=== PATIENT | male | born 1930 | race Two or more races ===

== ENCOUNTER → 2017-09-17 | Outpatient (CLI) | payer OTHER ==
[~2017-09-17] MED LIST: ATACAND16 MG PO; CEFADROXIL500 MG PO; RAYOS5 MG PO; ZYTIGA250 MG PO; [UNRECOGNIZED DRUG - OTHER]
== END | disposition home or self-care (01) ==
LOC: WOUND MED 07:59
DX: L89.623 Pressure ulcer of left heel, stage 3 (principal)
CPT/HCPCS: 11042; A4554; A4930; A6216; G0463

== ENCOUNTER 2017-09-21 07:31 | Outpatient (CLI) | payer OTHER ==
[~2017-09-21 07:31] MED LIST changes: -RAYOS5 MG PO; -ZYTIGA250 MG PO
== END 2017-09-21 07:36 | disposition home or self-care (01) ==
LOC: NUCLEAR 07:31
DX: C61 Malignant neoplasm of prostate (principal); C79.51 Secondary malignant neoplasm of bone; I48.2 Chronic atrial fibrillation; Z95.0 Presence of cardiac pacemaker; Z95.810 Presence of automatic (implantable) cardiac defibrillator
CPT/HCPCS: 78306; 78320; A9503

== ENCOUNTER → 2017-09-24 | Outpatient (CLI) | payer OTHER ==
[~2017-09-24] MED LIST changes: +RAYOS5 MG PO; +ZYTIGA250 MG PO
== END | disposition home or self-care (01) ==
LOC: EDSTATUS 10:13 → WOUND MED 14:10
DX: L89.623 Pressure ulcer of left heel, stage 3 (principal)
CPT/HCPCS: 11042; A4554; A4930; A6216; A6266

== ENCOUNTER 2017-09-30 08:32 | Outpatient (CLI) | payer OTHER ==
[~2017-09-30 08:32] MED LIST changes: -RAYOS5 MG PO; -ZYTIGA250 MG PO
== END 2017-09-30 08:46 | disposition home or self-care (01) ==
LOC: RAD 501 08:32
DX: C61 Malignant neoplasm of prostate (principal); C79.51 Secondary malignant neoplasm of bone; I48.2 Chronic atrial fibrillation; Z95.0 Presence of cardiac pacemaker; Z95.810 Presence of automatic (implantable) cardiac defibrillator

== ENCOUNTER 2017-10-01 11:05 | Outpatient (CLI) | payer OTHER | END 2017-10-17 23:59 | disposition home or self-care (01) | LOC: WOUND MED | DX: L89.623 Pressure ulcer of left heel, stage 3 (principal) | CPT/HCPCS: 11042; A4554; A4930; A6216; A6266 ==

== ENCOUNTER → 2017-10-08 | Outpatient (CLI) | payer OTHER ==
[~2017-10-08] MED LIST changes: +RAYOS5 MG PO; +ZYTIGA250 MG PO
== END | disposition home or self-care (01) ==
LOC: WOUND MED 07:56
DX: L89.623 Pressure ulcer of left heel, stage 3 (principal)
CPT/HCPCS: 11042; A4554; A4930; A6216; A6266

== ENCOUNTER 2017-10-15 10:23 | Inpatient (IN) | payer OTHER ==
[~2017-10-15] VITALS: Ht 165.1 cm; Wt 70.8 kg
[~2017-10-15 10:23] MED LIST changes: -RAYOS5 MG PO; -ZYTIGA250 MG PO
[2017-11-07] MEDS ORDERED: ZYTIGA250 MG PO (14:45)
[2017-11-07] MEDS ORDERED: RAYOS5 MG PO (14:46)
== END 2017-11-20 19:02 | disposition home health service (06) | DRG 264 ==
LOC: ER 10:23 → SURH 16:14
PROVIDERS: Specialist
PROC: 8E0ZXY6 Isolation (ICD-10-PCS; 2017-10-15)
PROC: 5A09557 Assistance with Respiratory Ventilation, Greater than 96 Consecutive Hours, Continuous Positive Airway Pressure (ICD-10-PCS; 2017-10-15)
PROC: 0JBR0ZZ Excision of Left Foot Subcutaneous Tissue and Fascia, Open Approach (ICD-10-PCS; principal; 2017-10-23 12:15)
PROC: B44HZZZ Ultrasonography of Bilateral Lower Extremity Arteries (ICD-10-PCS; 2017-10-28)
PROC: BT43ZZZ Ultrasonography of Bilateral Kidneys (ICD-10-PCS; 2017-11-02)
PROC: 3E0F7GC Introduction of Other Therapeutic Substance into Respiratory Tract, Via Natural or Artificial Opening (ICD-10-PCS; 2017-11-03)
PROC: 30233N1 Transfusion of Nonautologous Red Blood Cells into Peripheral Vein, Percutaneous Approach (ICD-10-PCS; 2017-11-09)
PROC: 0JBR0ZZ Excision of Left Foot Subcutaneous Tissue and Fascia, Open Approach (ICD-10-PCS; 2017-11-14)
DX: I87.2 Venous insufficiency (chronic) (peripheral) (principal); L97.428 Non-pressure chronic ulcer of left heel and midfoot with other specified severity; C79.51 Secondary malignant neoplasm of bone; N17.8 Other acute kidney failure; D68.8 Other specified coagulation defects; N18.4 Chronic kidney disease, stage 4 (severe); J90 Pleural effusion, not elsewhere classified; I48.2 Chronic atrial fibrillation; I25.5 Ischemic cardiomyopathy; G47.33 Obstructive sleep apnea (adult) (pediatric); K57.30 Diverticulosis of large intestine without perforation or abscess without bleeding; C61 Malignant neoplasm of prostate; Z95.1 Presence of aortocoronary bypass graft; Z95.2 Presence of prosthetic heart valve; B95.62 Methicillin resistant Staphylococcus aureus infection as the cause of diseases classified elsewhere; B96.29 Other Escherichia coli [E. coli] as the cause of diseases classified elsewhere; Z16.12 Extended spectrum beta lactamase (ESBL) resistance; Z79.01 Long term (current) use of anticoagulants; Z95.810 Presence of automatic (implantable) cardiac defibrillator; D63.0 Anemia in neoplastic disease; I13.10 Hypertensive heart and chronic kidney disease without heart failure, with stage 1 through stage 4 chronic kidney disease, or unspecified chronic kidney disease; D63.1 Anemia in chronic kidney disease; D53.0 Protein deficiency anemia; D53.1 Other megaloblastic anemias, not elsewhere classified; J20.9 Acute bronchitis, unspecified; N20.0 Calculus of kidney

== ENCOUNTER → 2017-10-15 | Outpatient (CLI) | payer OTHER | END | disposition home or self-care (01) | LOC: WOUND MED 07:56 | DX: L89.623 Pressure ulcer of left heel, stage 3 (principal) | CPT/HCPCS: 11042; 11045; A4554; A4930; A6216; A6266 ==

== ENCOUNTER → 2017-11-26 | Outpatient (CLI) | payer OTHER ==
[~2017-11-26] MED LIST changes: +RAYOS5 MG PO; +ZYTIGA250 MG PO
== END | disposition home or self-care (01) ==
LOC: WOUND MED 08:47
DX: L89.623 Pressure ulcer of left heel, stage 3 (principal)
CPT/HCPCS: 11042; 11045; A4554; A4930; A6216; A6219; A6266

== ENCOUNTER → 2017-12-03 | Outpatient (CLI) | payer OTHER | END | disposition home or self-care (01) | LOC: WOUND MED 07:49 | DX: L89.623 Pressure ulcer of left heel, stage 3 (principal) | CPT/HCPCS: 11042; 11045; A4554; A4930; A6196; A6216; A6219; A6266 ==

== ENCOUNTER → 2017-12-10 | Outpatient (CLI) | payer OTHER | END | disposition home or self-care (01) | LOC: WOUND MED 08:22 | DX: L89.623 Pressure ulcer of left heel, stage 3 (principal) | CPT/HCPCS: 11042; 11045; A4554; A4930; A6196; A6216; A6219; A6266 ==

== ENCOUNTER → 2017-12-17 | Outpatient (CLI) | payer OTHER | END | disposition home or self-care (01) | LOC: WOUND CARE 07:44 | DX: L89.623 Pressure ulcer of left heel, stage 3 (principal) | CPT/HCPCS: 97602; A4554; A4930; A6196; A6216; A6220; A6266 ==

== ENCOUNTER → 2017-12-24 | Outpatient (CLI) | payer OTHER | END | disposition home or self-care (01) | LOC: WOUND MED 08:42 | DX: L89.623 Pressure ulcer of left heel, stage 3 (principal) | CPT/HCPCS: 11042; 11045; A4554; A4930; A6216; A6219; A6266 ==

== ENCOUNTER → 2017-12-31 | Outpatient (CLI) | payer OTHER | END | disposition home or self-care (01) | LOC: WOUND MED 09:42 | DX: L89.623 Pressure ulcer of left heel, stage 3 (principal) | CPT/HCPCS: 11042; 11045; A4554; A4930; A6216; A6219; A6266 ==

== ENCOUNTER → 2018-01-07 | Outpatient (CLI) | payer OTHER | END | disposition home or self-care (01) | LOC: WOUND MED 07:31 | DX: L89.623 Pressure ulcer of left heel, stage 3 (principal) | CPT/HCPCS: 11042; 11045; A4554; A4930; A6216; A6266 ==

== ENCOUNTER → 2018-01-14 | Outpatient (CLI) | payer OTHER | END | disposition home or self-care (01) | LOC: WOUND MED 07:19 | DX: L89.623 Pressure ulcer of left heel, stage 3 (principal) | CPT/HCPCS: 11042; 11045; A4554; A4930; A6216; A6266 ==

== ENCOUNTER → 2018-01-21 | Outpatient (CLI) | payer OTHER | END | disposition home or self-care (01) | LOC: WOUND MED 07:58 | DX: L89.623 Pressure ulcer of left heel, stage 3 (principal) | CPT/HCPCS: 11042; 11045; A4554; A4930; A6216; A6266 ==

== ENCOUNTER → 2018-02-04 | Outpatient (CLI) | payer OTHER | END | disposition home or self-care (01) | LOC: WOUND MED 07:55 | DX: L89.623 Pressure ulcer of left heel, stage 3 (principal) | CPT/HCPCS: 11042; A4554; A4930; A6196; A6216; A6219 ==

== ENCOUNTER → 2018-02-11 | Outpatient (CLI) | payer OTHER | END | disposition home or self-care (01) | LOC: WOUND MED 07:16 | DX: L89.623 Pressure ulcer of left heel, stage 3 (principal) | CPT/HCPCS: 11042; 11045; A4554; A4930; A6196; A6216; A6219 ==

== ENCOUNTER 2018-02-12 11:39 | Inpatient (IN) | payer OTHER ==
[~2018-02-12] VITALS: Ht 167.6 cm; Wt 109.8 kg
[2018-02-25] MEDS ORDERED: SLOW-MAG64 M1 (14:36)
== END 2018-03-27 14:54 | DRG 673 ==
LOC: MEDJ 11:39
PROVIDERS: Specialist
PROC: B246ZZZ Ultrasonography of Right and Left Heart (ICD-10-PCS; 2018-02-12)
PROC: 30233N1 Transfusion of Nonautologous Red Blood Cells into Peripheral Vein, Percutaneous Approach (ICD-10-PCS; 2018-02-17)
PROC: CP1Z1ZZ Planar Nuclear Medicine Imaging of Musculoskeletal System, All using Technetium 99m (Tc-99m) (ICD-10-PCS; 2018-02-25)
PROC: 0JBN0ZZ Excision of Right Lower Leg Subcutaneous Tissue and Fascia, Open Approach (ICD-10-PCS; principal; 2018-02-26 09:00)
PROC: 02HV33Z Insertion of Infusion Device into Superior Vena Cava, Percutaneous Approach (ICD-10-PCS; 2018-03-03)
PROC: 0JBQ0ZZ Excision of Right Foot Subcutaneous Tissue and Fascia, Open Approach (ICD-10-PCS; 2018-03-16)
DX: N17.8 Other acute kidney failure (principal); I50.23 Acute on chronic systolic (congestive) heart failure; I13.0 Hypertensive heart and chronic kidney disease with heart failure and stage 1 through stage 4 chronic kidney disease, or unspecified chronic kidney disease; C79.51 Secondary malignant neoplasm of bone; L97.328 Non-pressure chronic ulcer of left ankle with other specified severity; L97.318 Non-pressure chronic ulcer of right ankle with other specified severity; L97.818 Non-pressure chronic ulcer of other part of right lower leg with other specified severity; L03.115 Cellulitis of right lower limb; E09.65 Drug or chemical induced diabetes mellitus with hyperglycemia; T38.0X5A Adverse effect of glucocorticoids and synthetic analogues, initial encounter; G47.33 Obstructive sleep apnea (adult) (pediatric); I48.2 Chronic atrial fibrillation; I25.5 Ischemic cardiomyopathy; E09.22 Drug or chemical induced diabetes mellitus with diabetic chronic kidney disease; N18.4 Chronic kidney disease, stage 4 (severe); I27.29 Other secondary pulmonary hypertension; C61 Malignant neoplasm of prostate; Z95.1 Presence of aortocoronary bypass graft; Z95.2 Presence of prosthetic heart valve; Z95.810 Presence of automatic (implantable) cardiac defibrillator; D53.8 Other specified nutritional anemias; D63.1 Anemia in chronic kidney disease; D63.0 Anemia in neoplastic disease; D53.1 Other megaloblastic anemias, not elsewhere classified; D53.0 Protein deficiency anemia; I87.2 Venous insufficiency (chronic) (peripheral); B95.61 Methicillin susceptible Staphylococcus aureus infection as the cause of diseases classified elsewhere; B96.5 Pseudomonas (aeruginosa) (mallei) (pseudomallei) as the cause of diseases classified elsewhere; F32.89 Other specified depressive episodes

== ENCOUNTER → 2018-07-01 | Outpatient (CLI) | payer OTHER ==
[~2018-07-01] MED LIST changes: +SLOW-MAG64 M1
== END | disposition home or self-care (01) ==
LOC: NUCLEAR 07:00
DX: C61 Malignant neoplasm of prostate (principal); C79.51 Secondary malignant neoplasm of bone; I48.2 Chronic atrial fibrillation; Z95.0 Presence of cardiac pacemaker; Z95.810 Presence of automatic (implantable) cardiac defibrillator; Z08 Encounter for follow-up examination after completed treatment for malignant neoplasm
CPT/HCPCS: 78815; A9552

== ENCOUNTER → 2019-02-24 | Outpatient (CLI) | payer OTHER | END | disposition home or self-care (01) | LOC: NUCLEAR 08:51 | DX: C61 Malignant neoplasm of prostate (principal); C79.51 Secondary malignant neoplasm of bone; I48.2 Chronic atrial fibrillation | CPT/HCPCS: 78306; 78320; A9503 ==

== ENCOUNTER 2019-05-16 09:13 | Outpatient (CLI) | payer OTHER | END 2019-05-16 14:06 | disposition home or self-care (01) | LOC: TOM 09:13 | DX: K52.89 Other specified noninfective gastroenteritis and colitis (principal) ==